=== PATIENT | female | born 1955 | race Caucasian/White ===

== ENCOUNTER 2022-08-20 18:15 | Emergency (ER) | payer MEDICARE, SELFPAY ==
--- NOTE | 2022-08-20 18:27 | ED.FEMALEGU ---
HPI - Female Genitourinary General Chief complaint: Urogenital-Female Stated complaint: poss uti Time Seen by Provider: 08/20/22 18:28 Source: patient and RN notes reviewed History of Present Illness HPI Narrative: patient is a 67-year-old female who presents to urgent care with complaints for possible UTI. Patient states that 3 days ago she was having urinary frequency, urgency and dysuria. Patient has been taking azo for her symptoms. Patient denies any fevers, nausea or vomiting. Denies abdominal pain. denies of Frequent history UTIs. No other acute complaints. No Acute distress noted. Patient aware of the plan of care. Some parts of this dictation were generated by voice recognition software and may contain typographical and/or grammatical inaccuracies. Related Data Home Medications Medication Instructions Recorded Confirmed spironolactone 50 mg tablet mg 08/20/22 Allergies Allergy/AdvReac Type Severity Reaction Status Date / Time No Known Allergies Allergy Unverified 09/09/14 10:58 Review of Systems Review of Systems: CONSTITUTIONAL: Denies fever, chills, or sweats. EYES: Denies visual changes, redness, or discharge. ENT: Denies rhinorrhea, congestion, sore throat, or otalgia. CARDIOVASCULAR: Denies chest pain, palpitations, or edema. RESPIRATORY: Denies cough or dyspnea. GASTROINTESTINAL: Denies abdominal pain, nausea, vomiting, or diarrhea. GENITOURINARY: reports of urinary frequency, urgency and dysuria SKIN: Denies rash or itching. MUSCULOSKELETAL: Denies back pain, joint pain, or myalgia. NEUROLOGIC: Denies headache, numbness, or weakness. All other systems reviewed are negative, except as documented in HPI. PMFSH Comments At the time of my signature, I reviewed and agree with the nursing past medical, surgical, social, and family history. There is no relevant family history pertinent to the patient complaint. Exam Narrative: GENERAL: This is a well-nourished, well-developed patient, in no apparent distress. HEAD: normocephalic, atraumatic. EYES: PERRL. Sclera clear/white. Vision is grossly intact. EARS: External ears normal NOSE: External nose normal with no obvious nasal discharge, nares without redness, no rhinorrhea. THROAT: Mucous membranes moist NECK: Neck supple CARDIOVASCULAR: Regular rate and rhythm without murmurs, gallops, or rubs. RESPIRATORY: Clear to auscultation. Breath sounds equal bilaterally. No wheezes, rales, or rhonchi. GASTROINTESTINAL: Abdomen soft, non-tender, nondistended. Bowel sounds are active. SKIN: warm, intact with no suspicious lesions or rash, good texture and turgor. NEURO: awake, alert, and oriented to person, place and time. There were no obvious focal neurologic abnormalities. EXTREMITIES: No clubbing, cyanosis, or edema. BACK: negative bilateral CVA tenderness Course Course Level of Care: Express Care Visit Vital Signs Vital signs: Vital Signs Temperature 97.5 F L 08/20/22 18:33 Pulse Rate 66 08/20/22 18:33 Respiratory Rate 16 08/20/22 18:33 Blood Pressure 152/61 H 08/20/22 18:33 Pulse Oximetry 100 08/20/22 18:33 Oxygen Delivery Room Air 08/20/22 18:33 Temperature 97.5 F L 08/20/22 18:33 Pulse Rate 66 08/20/22 18:33 Respiratory Rate 16 08/20/22 18:33 Blood Pressure 152/61 H 08/20/22 18:33 Pulse Oximetry 100 08/20/22 18:33 Oxygen Delivery Room Air 08/20/22 18:33 Reviewed- Patient is informed that they may have pre-hypertension or hypertension based on a blood pressure reading in the department. I recommend the patient call the primary care provider listed on their discharge instructions or a physician of their choice this week to arrange follow-up for further evaluation of possible pre-hypertension or hypertension. MDM - Female Genitourinary MDM Narrative Medical decision making narrative: Reviewed lab results with patient. She is aware that urinalysis may be indicative of a urinary tract in
[2022-08-20 18:33] VITALS: BP 152/61; PULSE 66; RESP 16; TEMP 36.4; O2SAT 100
== END 2022-08-20 18:59 | disposition home or self-care (01) ==
PROVIDERS: Emergency Provider Nurse Practitioner Family
DX: N39.0 Urinary tract infection, site not specified (principal)
CPT/HCPCS: 81003; 87077; 87086; 87186; 99203; G0463